=== PATIENT | female | born 1995 | race Caucasian/White ===

== ENCOUNTER 2018-06-30 15:49 | Emergency (ER) | payer OTHER ==
--- NOTE | 2018-06-30 17:18 | ER Document Report ---
ED Medical Screen (RME) - General Chief Complaint: Abdominal Pain Stated Complaint: BACK PAIN Time Seen by Provider: 06/30/18 16:54 Mode of Arrival: Ambulatory Information source: Patient Notes: Rapid medical exam in triage: Patient is a 22-year-old female history of previous appendectomy presents emergency department with report of having recurrent syncopal events 1-2 episodes per week dating back for the last 5 months. She states she feels lightheaded prior to these events, but sometimes it is found on the floor by her . The patient is on no medications and reports no significant weight change. She denies any constipation, diarrhea, dysuria, fever. She also reports a 3-week history of left lower quadrant pain with some dyspareunia. She reports no vaginal discharge. There is a family history of ovarian cysts. There is also family history of gallbladder disease. On physical exam 22-year-old female in no obvious distress HEENT atraumatic conjunctiva clear Neck nontender Cardiovascular regular rate and rhythm without appreciable murmurs gallops rubs Lungs clear to auscultation bilaterally Abdomen soft but tender through the left suprapubic region. No gross mass. No erythema. Negative Rai's. Back no CVA tenderness. Neurologic no gross abnormalities she is ambulatory without complaint. Plan orthostatics UA, urine drug screen, lab studies, pelvic ultrasound and a EKG. Must rule out anemia versus electrolyte imbalance and consider ovarian cyst given the discomfort. Please see partner's note for further evaluation and care. TRAVEL OUTSIDE OF THE [place] IN LAST 30 DAYS: No - Related Data Allergies/Adverse Reactions: No Known Allergies Allergy (Unverified 06/30/18 15:56) Past Medical History - Social History Chew tobacco use (# tins/day): No Frequency of alcohol use: Occasional Drug Abuse: None Renal/ Medical History: Denies: Hx Peritoneal Dialysis Past Surgical History: Reports: Hx Appendectomy Physical Exam - Vital signs Vitals: Temp Pulse Resp BP Pulse Ox 98.4 F 91 16 114/68 100 06/30/18 16:02 06/30/18 16:02 06/30/18 16:02 06/30/18 16:02 06/30/18 16:02 Course - Vital Signs Vital signs: Temp Pulse Resp BP Pulse Ox 98.4 F 91 16 114/68 100 06/30/18 16:02 06/30/18 16:02 06/30/18 16:02 06/30/18 16:02 06/30/18 16:02
[2018-06-30 18:34] LABS: ABSOLUTE EOSINOPHILS # (AUTO) 0.1 10^3/uL (0.0-0.6); ABSOLUTE LYMPHOCYTES (AUTO) 2.5 10^3/uL (0.5-4.7); ABSOLUTE MONOCYTES (AUTO) 0.7 10^3/uL (0.1-1.4); ABSOLUTE NEUT (AUTO) 5.5 10^3/uL (1.7-8.2); BASOPHILS % (AUTO) 0.3 % (0-2); EOSINOPHILS % (AUTO) 1.1 % (0-6); HEMATOCRIT 41.5 % (36.0-47.0); HEMOGLOBIN 14.4 g/dL (12.0-15.5); LYMPHOCYTES % (AUTO) 28.2 % (13-45); MEAN CORPUSCULAR HEMOGLOBIN 29.8 pg (27.0-33.4); MEAN CORPUSCULAR HGB CONC 34.6 g/dL (32.0-36.0); MEAN CORPUSCULAR VOLUME 86 fl (80-97); MONOCYTES % (AUTO) 7.9 % (3-13); PLATELET COUNT 305 10^3/uL (150-450); RED BLOOD COUNT 4.82 10^6/uL (3.72-5.28); RED CELL DISTRIBUTION WIDTH 14.2 % (11.5-14.0); SEGMENTED NEUTROPHILS % (AUTO) 62.5 % (42-78); TOTAL CELLS COUNTED % (AUTO) 100 %; WHITE BLOOD COUNT 8.8 10^3/uL (4.0-10.5)
[2018-06-30 18:53] LABS: ALANINE AMINOTRANSFERASE 24 U/L (9-52); ALBUMIN 4.6 g/dL (3.5-5.0); ALKALINE PHOSPHATASE 65 U/L (38-126); ANION GAP 9 (5-19); ASPARTATE AMINO TRANSFERASE 23 U/L (14-36); BILIRUBIN,DIRECT 0.1 mg/dL (0.0-0.4); BILIRUBIN,TOTAL 0.5 mg/dL (0.2-1.3); BLOOD UREA NITROGEN 10 mg/dL (7-20); CALCIUM 9.8 mg/dL (8.4-10.2); CARBON DIOXIDE 29 mmol/L (22-30); CHLORIDE 103 mmol/L (98-107); GLUCOSE 73 mg/dL (75-110); POTASSIUM 3.9 mmol/L (3.6-5.0); SODIUM 141.3 mmol/L (137-145); TOTAL PROTEIN 8.6 g/dL (6.3-8.2)
--- NOTE | 2018-06-30 20:07 | ER Document Report ---
ED General - General Chief Complaint: Abdominal Pain Stated Complaint: BACK PAIN Time Seen by Provider: 06/30/18 16:54 Mode of Arrival: Ambulatory TRAVEL OUTSIDE OF THE [place] IN LAST 30 DAYS: No - HPI Patient complains to provider of: Lightheadedness, dizziness, nausea pain, lower back pain Onset: Other - Initially started in mid February, worse in May Onset/Duration: Gradual Quality of pain: Sharp Severity: Severe Pain Level: 4 Associated symptoms: denies: Chills, Fever Exacerbated by: Denies Relieved by: Denies Similar symptoms previously: No Recently seen / treated by doctor: No Notes: 22-year-old female complaining of dizziness lightheadedness and nauseousness ongoing since February. She just got established with her primary care doctor and has gone to a manufacturing industrial engineer and will have a stress test. Also follow-up with gynecology for her ongoing lower abdominal/suprapubic pain. No fevers or chills. Patient says that she is taken multiple tests were negative. - Related Data Allergies/Adverse Reactions: No Known Allergies Allergy (Unverified 06/30/18 15:56) Past Medical History - General Information source: Patient - Social History Smoking Status: Never Smoker Chew tobacco use (# tins/day): No Frequency of alcohol use: Occasional Drug Abuse: None Family History: Reviewed & Not Pertinent Patient has suicidal ideation: No Patient has homicidal ideation: No Renal/ Medical History: Denies: Hx Peritoneal Dialysis Past Surgical History: Reports: Hx Appendectomy Review of Systems - Review of Systems Notes: Constitutional: No fevers. No chills. EENT: No eye redness. No eye pain. No ear pain. No sore throat. Cardiovascular: No chest pain. No palpitations. Respiratory: No cough. No shortness of breath. No respiratory distress. Gastrointestinal: Positive for abdominal pain. Positive for pelvic pain. Genitourinary: Atraumatic. No lesions. No pain. No discharge. Musculoskeletal: Atraumatic. No swelling. No deformities. Skin: No rash or lesions. Lymphatic: No swollen lymph nodes. Neurologic: No headache. No syncope. Positive for dizziness and lightheaded Psychiatric: No suicidal or homicidal ideation. Physical Exam - Vital signs Vitals: Temp Pulse Resp BP Pulse Ox 98.4 F 91 16 114/68 100 06/30/18 16:02 06/30/18 16:02 06/30/18 16:02 06/30/18 16:02 06/30/18 16:02 - Notes Notes: General: Well-developed, well-nourished. In no acute distress. Non-toxic appearing. Cardiac: Well-perfused. Regular rate and rhythm. No murmurs, rubs, or gallops. Pulmonary: No respiratory distress. No cyanosis. Bilateral lung fiels are clear to auscultation. Abdominal: Left lower quadrant and suprapubic tenderness. No guarding or rebound. Bowel sounds are present in all 4 quadrants HEENT: Head is atraumatic. Conjunctivae not reddened. No tearing. PERRL. EOMI. Orbits atraumatic. No periorbital swelling or erythema. Oropharynx is without erythema, swelling, or exudates. Neck: Supple. No adenopathy. No meningismus. Dermatologic: Warm with good turgor. No rash. Atraumatic. Chest: Atraumatic. No chest wall tenderness to palpation. Musculoskeletal: Moves all extremities well. No range of motion deficits. no muscular or joint tenderness. No paraspinal muscle tenderness. no midline spinal tenderness or step-off. Genitourinary: Examination deferred Neurologic: No gross neurologic deficits. Psychiatric: Normal mood. Course - Re-evaluation Re-evalutation: 06/30/18 20:07 Patient has a puzzling presentation. Her vital signs are fine. Her exam is for the most part normal. Workup was initiated by pit which I agree with. - Vital Signs Vital signs: Temp Pulse Resp BP Pulse Ox 98.4 F 91 16 114/68 100 06/30/18 16:02 06/30/18 16:02 06/30/18 16:02 06/30/18 16:02 06/30/18 16:02 - Laboratory Result Diagrams: 06/30/18 18:06 06/30/18 18:06 Laboratory results interpreted by me: 06/30/18 06/30/18 06/30/18 18:06 18:06 20:01 RDW 14.2 H Glucose 73 L Total Protein 8.6 H Urine Blood LARGE H Ur Leukocyte Esterase TRACE H - EKG Interpretation by Nc EKG shows normal: Sinus rhythm, [place], Intervals, QRS Complexes, ST-T Waves Discharge - Discharge Clinical Impression: Lightheadedness, Pelvic pain Back pain Qualifiers: Back pain location: low back pain Chronicity: acute Back pain laterality: unspecified Sciatica presence: without sciatica Qualified Code(s): M54.5 - Low back pain Disposition: HOME, SELF-CARE Instructions: Abdominal Pain ([facility]), Low Back Pain ([facility]), Dizziness ([facility]) Additional Instructions: Follow-up with your primary care doctor for further evaluation and treatment. Referrals: MAYCO ISIDRO, [Primary Care Provider] - Follow up tomorrow
[2018-06-30 20:21] LABS: APPEARANCE,URINE CLEAR; BILIRUBIN,URINE NEGATIVE (NEGATIVE); COLOR,URINE YELLOW; GLUCOSE, URINE NEGATIVE (NEGATIVE); KETONES,URINE NEGATIVE (NEGATIVE); LEUKOCYTE ESTERASE,URINE TRACE (NEGATIVE); NITRITE,URINE NEGATIVE (NEGATIVE); PROTEIN,URINE NEGATIVE (NEGATIVE); URINE SPECIFIC GRAVITY 1.008; UROBILINOGEN,URINE NEGATIVE mg/dL (<2.0)
[2018-06-30 20:34] LABS: URINE AMPHETAMINES SCREEN NEGATIVE; URINE BARBITURATES SCREEN NEGATIVE; URINE BENZODIAZEPINES SCREEN NEGATIVE; URINE MARIJUANA (THC) SCREEN NEGATIVE; URINE METHADONE SCREEN NEGATIVE; URINE PHENCYCLIDINE SCREEN NEGATIVE
[2018-06-30 20:41] LABS: URINE COCAINE SCREEN NEGATIVE
--- NOTE | 2018-06-30 21:02 | RADIOLOGY REPORT (SQ) ---
EXAM DESCRIPTION: US TRANSVAGINAL COMPLETED DATE/TME: 06/30/2018 17:11 CLINICAL HISTORY: 22 years, Female, LLQ pain COMPARISON: None. TECHNIQUE: Transverse and longitudinal transvaginal sonographic images of the pelvis LIMITATIONS: None. FINDINGS: The uterus measures 6.4 x 3.1 x 3.0 cm. The endometrium measures 5.9 mm in thickness. Myometrium is homogenous. Right ovary measures 2.6 x 2.4 x 1.5 cm, the left 3.7 x 2.7 x 2.0 cm. Normal flow to each ovary. No adnexal cyst or mass. No free fluid IMPRESSION: Unremarkable pelvic ultrasound copyright 2010 [employer]- All Rights Reserved
[2018-06-30 21:39] VITALS: BP 113/74
--- NOTE | 2018-06-30 22:51 | EKG REPORT ---
SEVERITY:- NORMAL ECG - SINUS RHYTHM : Confirmed by: Corinna Wan 30-Jun-2018 22:50:59
== END 2018-06-30 21:37 | disposition home or self-care (01) ==
LOC: ER 15:49
DX: M54.5 Low back pain (principal); R42 Dizziness and giddiness; R10.2 Pelvic and perineal pain; R10.9 Unspecified abdominal pain; M54.9 Dorsalgia, unspecified; M53.9 Dorsopathy, unspecified; R11.0 Nausea
CPT/HCPCS: 36415; 76830; 80053; 80307; 81001; 81025; 85025; 93005; 93010; 93976; 99284